=== PATIENT | female | born 1965 | race Two or more races ===

== ENCOUNTER 2016-07-20 08:25 | Emergency (ER) | payer SELFPAY ==
[2016-07-20] MEDS ORDERED: ACETAMINOPHEN 500 MG TABLET ONE (08:59)
--- NOTE | 2016-07-20 09:24 | RAD ---
History: Fever and cough for 2 days. Comparison: 08/25/2015. Technique: 2 views Findings: The soft tissue and bony structures are unremarkable. The heart size is appropriate. No infiltrate, effusion or pneumothorax is observed. The hilar and mediastinal structures are normal. Impression: 1. A negative 2 view chest
== END 2016-07-20 09:41 | disposition home or self-care (01) ==
LOC: ED 08:25
DX: J45.909 Unspecified asthma, uncomplicated (principal); J06.9 Acute upper respiratory infection, unspecified; R05 Cough